=== PATIENT | female | born 1930 | race Asian ===

== ENCOUNTER 2018-01-08 18:05 | Inpatient (IN) | payer OTHER ==
[~2018-01-08] VITALS: Ht 152.4 cm; Wt 54.0 kg
[2018-01-08] VITALS (11 sets, daily range): BP systolic 160–197; BP diastolic 56–85
[~2018-01-08 18:05] MED LIST: ETOMIDATE 2MG/ML 10ML VIAL IV ONE; SUCCINYLCHOLINE CHLORIDE 200MG/10ML VIAL IV ONE
[2018-01-08] MEDS ORDERED: SODIUM CHLORIDE 0.9% 1,000 ML IV ONE (18:20)
[2018-01-08] MEDS ORDERED: PROPOFOL 10MG/ML 100ML 100 ML IV ONE (18:45)
[2018-01-08] MEDS ORDERED: ETOMIDATE 2MG/ML 10ML VIAL IV ONE (18:45)
[2018-01-08] MEDS ORDERED: SUCCINYLCHOLINE CHLORIDE 200MG/10ML VIAL IV ONE (18:45)
[2018-01-08 18:57] LABS: BASOPHILS % 0.7 % (0.0-2.0); EOSINOPHILS % 4.6 % (0.0-5.0); HEMATOCRIT. 37.6 % (36.0-48.0); HEMOGLOBIN. 12.9 g/dL (12.0-16.0); LYMPHOCYTES % 19.3 % (20.0-50.0); MEAN CORPUSCULAR HEMOGLOBIN 31.4 pg (28.0-32.0); MEAN CORPUSCULAR VOLUME 91.5 fL (81.0-99.0); MEAN PLATELET VOLUME 7.9 fl (7.4-10.4); MONOCYTES % 10.1 % (2.0-8.0); NEUTROPHILS % 65.3 % (40.0-76.0); PLATELET 192 x1000/uL (130-400); RED CELL DISTRIBUTION WIDTH 13.4 % (11.6-14.6)
[2018-01-08 19:04] LABS: CHLORIDE 105 mEq/L (98-107); INR 1.1; PROTHROMBIN TIME 11.3 sec (9.4-11.6)
[2018-01-08 19:08] LABS: ETHANOL BLOOD < 10 mg/dL
[2018-01-08] MEDS ORDERED: FUROSEMIDE 40MG/4ML VIAL IVP ONE (19:45)
[2018-01-08 19:47] LABS: CLARITY URINE CLEAR (CLEAR); COLOR URINE YELLOW (YELLOW); KETONES URINE NEGATIVE (NEGATIVE); LEUKOCYTE ESTERASE URINE NEGATIVE (NEGATIVE); NITRITE URINE NEGATIVE (NEGATIVE); OCCULT BLOOD URINE NEGATIVE (NEGATIVE); PH URINE 6.5 (4.5-8.0); PROTEIN URINE 1+ (NEGATIVE); SPECIFIC GRAVITY URINE 1.017 (1.005-1.030); UROBILINOGEN URINE 0.2 E.U./dL (0.2-1.0)
[2018-01-08 19:59] LABS: CREATINE KINASE 142 IU/L (26-192)
[2018-01-08 20:16] LABS: *AMPHETAMINES SCREEN URINE NEGATIVE (NEGATIVE); *BARBITURATES SCREEN URINE NEGATIVE (NEGATIVE)
[2018-01-08 20:17] LABS: *BENZODIAZEPINES SCREEN URINE NEGATIVE (NEGATIVE); *COCAINE SCREEN URINE NEGATIVE (NEGATIVE); CANNABINOID URINE SCREEN NEGATIVE (NEGATIVE); METHADONE URINE SCREEN NEGATIVE (NEGATIVE); OPIATES URINE SCREEN NEGATIVE (NEGATIVE); PHENCYCLIDINE URINE SCREEN NEGATIVE (NEGATIVE)
[2018-01-09] VITALS (47 sets, daily range): BP systolic 114–194; BP diastolic 37–91
[2018-01-09] MEDS ORDERED: ACETAMINOPHEN 325MG TABLET GT PRN
[2018-01-09] MEDS ORDERED: ONDANSETRON HCL 4MG/2ML VIAL IV PRN
[2018-01-09] MEDS ORDERED: LORAZEPAM 2MG/ML CPJ IV PRN
[2018-01-09] MEDS ORDERED: ATROPINE SULFATE 1MG/10ML SYR IV SCH (00:15)
[2018-01-09] MEDS ORDERED: ATROPINE SULFATE 1MG/10ML SYR IV PRN (00:30)
[2018-01-09 00:32] LABS: BG BASE EXCESS -0.9 mmol/L (-2.0-2.0); BG CARBOXYHEMOGLOBIN 0.3 % (0.5-1.5); BG DEOXYHEMOGLOBIN 0.5 % (0.0-5.0); BG FRACTION INSPIRED OXYGEN 100; BG HCO3 ACT 22.4 mmol/L (22.0-26.0); BG METHEMOGLOBIN 0.2 % (0.0-1.5); BG OXYGEN SATURATION 99.5 % (92.0-98.5); BG PCO2 33.4 mmHg (35.0-45.0); BG PEEP (cmH2O) 0 cmH2O; BG PH 7.445 (7.350-7.450); BG PO2 407.4 mmHg (75.0-100.0); BG SAMPLE SITE LEFT BRACHIAL; BG TIDAL VOLUME(mL) 500 mL; BG VENT MODE VENT - A/C; BG VENT RATE 12 set
[2018-01-09] MEDS: DEXT 5%/0.45% NACL 1000ML 1,000 ML IV SCH ×3 (00:53→23:49)
[2018-01-09] MEDS: HYDRALAZINE 20MG/ML VIAL IV PRN ×4 (00:55→22:25)
[2018-01-09] MEDS ORDERED: PIPERACILLIN/TAZ 3.375G PREMIX 50 ML IV SCH ×2 (01:00)
[2018-01-09] MEDS ORDERED: VANCOMYCIN 1 G PREMIX 200 ML IV SCH ×2 (02:00)
[2018-01-09] MEDS ORDERED: PROPOFOL 10MG/ML 100ML 100 ML IV PRN (02:00)
[2018-01-09 06:28] LABS: BASOPHILS % 0.5 % (0.0-2.0); EOSINOPHILS % 1.1 % (0.0-5.0); HEMATOCRIT. 40.2 % (36.0-48.0); HEMOGLOBIN. 13.6 g/dL (12.0-16.0); LYMPHOCYTES % 7.9 % (20.0-50.0); MEAN CORPUSCULAR HEMOGLOBIN 31.1 pg (28.0-32.0); MEAN PLATELET VOLUME 7.3 fl (7.4-10.4); MONOCYTES % 11.7 % (2.0-8.0); NEUTROPHILS % 78.8 % (40.0-76.0); PLATELET 145 x1000/uL (130-400); RED BLOOD CELL COUNT 4.37 mill/uL (4.2-5.4); RED CELL DISTRIBUTION WIDTH 13.1 % (11.6-14.6)
[2018-01-09 07:53] LABS: AMMONIA 37 uMol/L (<32)
[2018-01-09 07:55] LABS: PHOSPHORUS 3.5 mg/dL (2.5-4.9)
[2018-01-09 08:01] LABS: CREATINE KINASE MB FRACTION 7.5 ng/mL (0.5-3.6)
[2018-01-09 08:30] LABS: BG BASE EXCESS -1.5 mmol/L (-2.0-2.0); BG CARBOXYHEMOGLOBIN 0.2 % (0.5-1.5); BG DEOXYHEMOGLOBIN 0.7 % (0.0-5.0); BG FRACTION INSPIRED OXYGEN 50; BG METHEMOGLOBIN 0.3 % (0.0-1.5); BG OXYGEN SATURATION 99.3 % (92.0-98.5); BG OXYHEMOGLOBIN 98.8 % (94.0-97.0); BG PCO2 29.2 mmHg (35.0-45.0); BG PH 7.474 (7.350-7.450); BG PO2 225.8 mmHg (75.0-100.0); BG SAMPLE SITE RIGHT BRACHIAL; BG TIDAL VOLUME(mL) 500 mL; BG TOTAL HEMOGLOBIN 13.8 g/dL (12.0-18.0); BG VENT MODE VENT - A/C; BG VENT RATE 12 set
[2018-01-09] MEDS: KCL 20MEQ/100ML PREMIX 100 ML IV SCH ×2 (09:00→11:48)
[2018-01-09] MEDS ORDERED: ENOXAPARIN 40MG/0.4ML SYR SUBCUT SCH (09:00)
[2018-01-09] MEDS: PIPERACILLIN/TAZ 2.25G PREMIX 50 ML IV SCH ×3 (09:01→23:49)
[2018-01-09] MEDS: ENOXAPARIN 30MG/0.3ML SYR SUBCUT SCH (09:03)
[2018-01-09] MEDS ORDERED: MAGNESIUM 2 G PREMIX 50 ML IV ONE (10:00)
[2018-01-09] MEDS: FUROSEMIDE 40MG/4ML VIAL IVP SCH ×2 (10:15→17:45)
[2018-01-09] MEDS ORDERED: MAGNESIUM SULFATE 2 GM in DEXTROSE 5% WATER 50 ML IV NR (11:00)
[2018-01-09] MEDS ORDERED: ISOS60TA4 PO (11:08)
[2018-01-09] MEDS ORDERED: GABA-529 PO (11:08)
[2018-01-09] MEDS ORDERED: FURO20TA4 PO (11:08)
[2018-01-09] MEDS ORDERED: HYDR100T26 PO (11:08)
[2018-01-09] MEDS ORDERED: LOSA50TA20 PO (11:08)
[2018-01-09] MEDS ORDERED: ATOR-2 PO (11:08)
[2018-01-09] MEDS ORDERED: CARV25TA47 PO (11:08)
[2018-01-09] MEDS ORDERED: LEVO88TA7 PO (11:08)
[2018-01-09] MEDS ORDERED: OMEP20CA10 PO (11:08)
[2018-01-09] MEDS: LOSARTAN POTASSIUM 50 MG TABLET PO SCH (11:48)
[2018-01-09] MEDS: AMLODIPINE 5MG TABLET PO SCH (11:48)
[2018-01-09] MEDS: LEVOTHYROXINE SODIUM 88MCG TABLET PO SCH (15:16)
[2018-01-09 15:47] LABS: T4 FREE 1.76 ng/dL (0.76-1.46)
[2018-01-09 15:48] LABS: CREATINE KINASE MB FRACTION 12.7 ng/mL (0.5-3.6)
[2018-01-09 15:54] LABS: AMMONIA 38 uMol/L (<32)
[2018-01-09 16:07] LABS: FOLIC ACID (FOLATE) SERUM > 20.00 ng/mL (>5.38)
[2018-01-09 16:17] LABS: VITAMIN B12 SERUM 1312 pg/mL (211-911)
[2018-01-09] MEDS: IPRATROPIUM/ALBUTEROL 0.5-3(2.5)MG/3ML NEB HHN SCH ×2 (16:32→20:27)
[2018-01-09] MEDS: NITROGLYCERIN OINT 1GM/INCH UDPKT TD SCH ×2 (17:45→21:48)
[2018-01-10] VITALS (75 sets, daily range): BP systolic 59–202; BP diastolic 30–131
[2018-01-10] MEDS ORDERED: VANCOMYCIN 750 MG PREMIX 150 ML IV SCH
[2018-01-10] MEDS: IPRATROPIUM/ALBUTEROL 0.5-3(2.5)MG/3ML NEB HHN SCH ×6 (00:14→20:11)
[2018-01-10] MEDS: NITROGLYCERIN OINT 1GM/INCH UDPKT TD SCH ×3 (05:11→21:16)
[2018-01-10] MEDS: FUROSEMIDE 40MG/4ML VIAL IVP SCH ×2 (06:52→17:41)
[2018-01-10 06:54] LABS: HEMATOCRIT. 44.6 % (36.0-48.0); HEMOGLOBIN. 15.1 g/dL (12.0-16.0); MEAN CORPUSCULAR HEMOGLOBIN 30.8 pg (28.0-32.0); MEAN CORPUSCULAR VOLUME 90.7 fL (81.0-99.0); MEAN PLATELET VOLUME 7.4 fl (7.4-10.4); PLATELET 149 x1000/uL (130-400); RED BLOOD CELL COUNT 4.92 mill/uL (4.2-5.4); RED CELL DISTRIBUTION WIDTH 13.1 % (11.6-14.6)
[2018-01-10 07:34] LABS: CHLORIDE 95 mEq/L (98-107)
[2018-01-10 07:46] LABS: PHOSPHORUS 2.1 mg/dL (2.5-4.9)
[2018-01-10] MEDS ORDERED: POTASSIUM CHLORIDE 20MEQ/PACKET PO NR ×2 (08:15→12:41)
[2018-01-10] MEDS: ENOXAPARIN 30MG/0.3ML SYR SUBCUT SCH (09:04)
[2018-01-10] MEDS: PANTOPRAZOLE SODIUM 40 MG/VIAL IV SCH (09:04)
[2018-01-10] MEDS: PIPERACILLIN/TAZ 2.25G PREMIX 50 ML IV SCH ×2 (09:04→16:36)
[2018-01-10] MEDS: LOSARTAN POTASSIUM 50 MG TABLET PO SCH (09:04)
[2018-01-10] MEDS: AMLODIPINE 5MG TABLET PO SCH (09:05)
[2018-01-10] MEDS: LEVOTHYROXINE SODIUM 88MCG TABLET PO SCH (09:05)
[2018-01-10 09:20] LABS: BG BASE EXCESS 0.9 mmol/L (-2.0-2.0); BG CARBOXYHEMOGLOBIN 0.2 % (0.5-1.5); BG DEOXYHEMOGLOBIN 0.7 % (0.0-5.0); BG FRACTION INSPIRED OXYGEN 40; BG HCO3 ACT 20.9 mmol/L (22.0-26.0); BG METHEMOGLOBIN 0.3 % (0.0-1.5); BG OXYGEN SATURATION 99.3 % (92.0-98.5); BG OXYHEMOGLOBIN 98.8 % (94.0-97.0); BG PCO2 23.8 mmHg (35.0-45.0); BG PH 7.562 (7.350-7.450); BG SAMPLE SITE RIGHT RADIAL; BG TIDAL VOLUME(mL) 500 mL; BG TOTAL HEMOGLOBIN 16.1 g/dL (12.0-18.0); BG VENT MODE VENT - A/C; BG VENT RATE 12 set
[2018-01-10] MEDS ORDERED: POTASSIUM CHLORIDE 20MEQ TABLET SR PO NR (12:15)
[2018-01-10] MEDS: SPIRONOLACTONE 25MG TABLET PO SCH (13:16)
[2018-01-10 13:19] LABS: PLATELET ESTIMATE NORMAL
[2018-01-10] MEDS: DEXT 5%/0.45% NACL 1000ML 1,000 ML IV SCH (16:01)
[2018-01-10] MEDS ORDERED: NOREPINEPHRINE BITARTRATE 1MG/ML 4ML IV ONE (16:33)
[2018-01-10] MEDS ORDERED: VANCOMYCIN 1 G PREMIX 200 ML IV SCH (21:00)
[2018-01-10] MEDS ORDERED: ACETAMINOPHEN 650MG/20.3ML UDC GT PRN (22:15)
[2018-01-11] VITALS (87 sets, daily range): BP systolic 59–167; BP diastolic 32–73
[2018-01-11] MEDS: PIPERACILLIN/TAZ 2.25G PREMIX 50 ML IV SCH ×2 (00:05→08:09)
[2018-01-11] MEDS: IPRATROPIUM/ALBUTEROL 0.5-3(2.5)MG/3ML NEB HHN SCH ×6 (00:12→20:26)
[2018-01-11] MEDS: NOREPINEPHRINE 4 MG in DEXT 5% WATER 246 ML IV PRN (04:58)
[2018-01-11] MEDS: NITROGLYCERIN OINT 1GM/INCH UDPKT TD SCH ×3 (06:00→22:00)
[2018-01-11 06:45] LABS: HEMATOCRIT. 41.9 % (36.0-48.0); HEMOGLOBIN. 14.4 g/dL (12.0-16.0); MEAN CORPUSCULAR HEMOGLOBIN 31.1 pg (28.0-32.0); MEAN CORPUSCULAR VOLUME 90.8 fL (81.0-99.0); MEAN PLATELET VOLUME 8.3 fl (7.4-10.4); PLATELET 116 x1000/uL (130-400); RED BLOOD CELL COUNT 4.62 mill/uL (4.2-5.4); RED CELL DISTRIBUTION WIDTH 13.1 % (11.6-14.6)
[2018-01-11] MEDS: LEVOTHYROXINE SODIUM 88MCG TABLET PO SCH (06:51)
[2018-01-11] MEDS: FUROSEMIDE 40MG/4ML VIAL IVP SCH ×2 (06:51→18:45)
[2018-01-11] MEDS: AMLODIPINE 5MG TABLET PO SCH (09:00)
[2018-01-11] MEDS ORDERED: POTASSIUM CHLORIDE INJ 40 MEQ in DEXT 5% WATER 250 ML IV ONE (09:15)
[2018-01-11] MEDS ORDERED: IPRATROPIUM/ALBUTEROL 0.5-3(2.5)MG/3ML NEB HHN PRN (09:15)
[2018-01-11 09:42] LABS: BG BASE EXCESS -1.1 mmol/L (-2.0-2.0); BG CARBOXYHEMOGLOBIN 0.4 % (0.5-1.5); BG DEOXYHEMOGLOBIN 0.9 % (0.0-5.0); BG FRACTION INSPIRED OXYGEN 40; BG HCO3 ACT 20.4 mmol/L (22.0-26.0); BG METHEMOGLOBIN 0.2 % (0.0-1.5); BG OXYGEN SATURATION 99.1 % (92.0-98.5); BG OXYHEMOGLOBIN 98.5 % (94.0-97.0); BG PCO2 26.6 mmHg (35.0-45.0); BG PH 7.502 (7.350-7.450); BG PO2 167.1 mmHg (75.0-100.0); BG SAMPLE SITE RIGHT BRACHIAL; BG TIDAL VOLUME(mL) 500 mL; BG VENT MODE VENT - A/C; BG VENT RATE 12 set
[2018-01-11 10:08] LABS: PLATELET ESTIMATE DECREASED
[2018-01-11] MEDS: LOSARTAN POTASSIUM 50 MG TABLET PO SCH (10:29)
[2018-01-11] MEDS: ENOXAPARIN 30MG/0.3ML SYR SUBCUT SCH (10:31)
[2018-01-11] MEDS: KCL 20MEQ/100ML PREMIX 100 ML IV SCH ×2 (10:31→16:46)
[2018-01-11] MEDS: PANTOPRAZOLE SODIUM 40 MG/VIAL IV SCH (10:40)
[2018-01-11] MEDS: SPIRONOLACTONE 25MG TABLET PO SCH (10:40)
[2018-01-11] MEDS ORDERED: LORAZEPAM 2MG/ML CPJ IV PRN (11:00)
[2018-01-11] MEDS ORDERED: MORPHINE SULFATE 4 MG/ML CPJ (NOT FOR IM USE) IV PRN (11:00)
[2018-01-11] MEDS ORDERED: CEFEPIME 1,000 MG in DEXTROSE 5% WATER 50 ML IV SCH (13:00)
[2018-01-11] MEDS ORDERED: MANNITOL 20% (20GM/100ML) BAG 500ML PREMIX IV ONE (17:45)
[2018-01-11] MEDS ORDERED: DEXAMETHASONE 10 MG/ML VIAL IV NR (17:45)
[2018-01-11] MEDS ORDERED: MANNITOL 20% 125 ML IV NR (18:30)
[2018-01-12] VITALS (60 sets, daily range): BP systolic 82–166; BP diastolic 36–84
[2018-01-12] MEDS: DEXAMETHASONE 4MG/ML 1ML VIAL IV SCH ×5 (00:55→18:30)
[2018-01-12] MEDS: IPRATROPIUM/ALBUTEROL 0.5-3(2.5)MG/3ML NEB HHN SCH ×5 (02:33→20:22)
[2018-01-12] MEDS: NITROGLYCERIN OINT 1GM/INCH UDPKT TD SCH (06:00)
[2018-01-12] MEDS: LEVOTHYROXINE SODIUM 88MCG TABLET PO SCH (06:10)
[2018-01-12] MEDS: FUROSEMIDE 40MG/4ML VIAL IVP SCH (06:18)
[2018-01-12] MEDS: DEXT 5%/0.45% NACL 1000ML 1,000 ML IV SCH ×3 (07:21→14:02)
[2018-01-12] MEDS ORDERED: MANNITOL 20% (20GM/100ML) BAG 500ML PREMIX IV SCH (07:45)
[2018-01-12 07:49] LABS: BG BASE EXCESS -5.5 mmol/L (-2.0-2.0); BG CARBOXYHEMOGLOBIN 0.2 % (0.5-1.5); BG DEOXYHEMOGLOBIN 0.9 % (0.0-5.0); BG HCO3 ACT 15.8 mmol/L (22.0-26.0); BG METHEMOGLOBIN 0.2 % (0.0-1.5); BG OXYGEN SATURATION 99.1 % (92.0-98.5); BG OXYHEMOGLOBIN 98.7 % (94.0-97.0); BG PCO2 22.1 mmHg (35.0-45.0); BG PH 7.471 (7.350-7.450); BG PO2 170.8 mmHg (75.0-100.0); BG SAMPLE SITE RIGHT BRACHIAL; BG TIDAL VOLUME(mL) 500 mL; BG TOTAL HEMOGLOBIN 14.9 g/dL (12.0-18.0); BG VENT MODE VENT - A/C; BG VENT RATE 12 set
[2018-01-12] MEDS ORDERED: MANNITOL 20% 125 ML IV SCH (08:00)
[2018-01-12] MEDS: PANTOPRAZOLE SODIUM 40 MG/VIAL IV SCH (09:00)
[2018-01-12] MEDS: NOREPINEPHRINE 4 MG in DEXT 5% WATER 246 ML IV PRN (09:59)
[2018-01-12] MEDS ORDERED: LEVOFLOXACIN 500MG PREMIX 100 ML IV SCH (10:15)
[2018-01-12 10:24] LABS: BG BASE EXCESS -5.3 mmol/L (-2.0-2.0); BG CARBOXYHEMOGLOBIN 0.3 % (0.5-1.5); BG DEOXYHEMOGLOBIN 0.4 % (0.0-5.0); BG HCO3 ACT 16.7 mmol/L (22.0-26.0); BG METHEMOGLOBIN 0.3 % (0.0-1.5); BG OXYGEN SATURATION 99.6 % (92.0-98.5); BG PCO2 24.8 mmHg (35.0-45.0); BG PH 7.447 (7.350-7.450); BG PO2 585.7 mmHg (75.0-100.0); BG SAMPLE SITE RIGHT BRACHIAL; BG TIDAL VOLUME(mL) 500 mL; BG TOTAL HEMOGLOBIN 14.8 g/dL (12.0-18.0); BG VENT MODE VENT - A/C; BG VENT RATE 12 set
[2018-01-12 10:34] LABS: BG BASE EXCESS -7.6 mmol/L (-2.0-2.0); BG CARBOXYHEMOGLOBIN 0.3 % (0.5-1.5); BG DEOXYHEMOGLOBIN 0.4 % (0.0-5.0); BG HCO3 ACT 18.6 mmol/L (22.0-26.0); BG METHEMOGLOBIN 0.1 % (0.0-1.5); BG OXYGEN SATURATION 99.6 % (92.0-98.5); BG OXYHEMOGLOBIN 99.2 % (94.0-97.0); BG PH 7.285 (7.350-7.450); BG PO2 510.5 mmHg (75.0-100.0); BG SAMPLE SITE RIGHT RADIAL; BG TOTAL HEMOGLOBIN 14.6 g/dL (12.0-18.0); BG VENT MODE NASAL CANNULA
[2018-01-12] MEDS ORDERED: LEVOFLOXACIN 750MG PREMIX 150 ML IV SCH (11:00)
[2018-01-12 11:52] LABS: HEMATOCRIT. 42.8 % (36.0-48.0); HEMOGLOBIN. 14.3 g/dL (12.0-16.0); MEAN CORPUSCULAR VOLUME 92.6 fL (81.0-99.0); PLATELET 107 x1000/uL (130-400); RED BLOOD CELL COUNT 4.63 mill/uL (4.2-5.4); RED CELL DISTRIBUTION WIDTH 13.3 % (11.6-14.6)
[2018-01-12 12:50] LABS: BG BASE EXCESS -6.1 mmol/L (-2.0-2.0); BG CARBOXYHEMOGLOBIN 0.2 % (0.5-1.5); BG DEOXYHEMOGLOBIN 0.3 % (0.0-5.0); BG FRACTION INSPIRED OXYGEN 100; BG HCO3 ACT 16.2 mmol/L (22.0-26.0); BG METHEMOGLOBIN 0.3 % (0.0-1.5); BG OXYGEN SATURATION 99.7 % (92.0-98.5); BG OXYHEMOGLOBIN 99.2 % (94.0-97.0); BG PCO2 24.9 mmHg (35.0-45.0); BG PH 7.431 (7.350-7.450); BG PO2 564.8 mmHg (75.0-100.0); BG SAMPLE SITE RIGHT BRACHIAL; BG TIDAL VOLUME(mL) 500 mL; BG TOTAL HEMOGLOBIN 14.8 g/dL (12.0-18.0); BG VENT MODE VENT - A/C; BG VENT RATE 12 set
[2018-01-12 13:03] LABS: BG BASE EXCESS -7.7 mmol/L (-2.0-2.0); BG CARBOXYHEMOGLOBIN 0.3 % (0.5-1.5); BG DEOXYHEMOGLOBIN 0.2 % (0.0-5.0); BG HCO3 ACT 19.1 mmol/L (22.0-26.0); BG METHEMOGLOBIN 0.5 % (0.0-1.5); BG OXYGEN SATURATION 99.8 % (92.0-98.5); BG PCO2 43.7 mmHg (35.0-45.0); BG PH 7.259 (7.350-7.450); BG PO2 511.7 mmHg (75.0-100.0); BG SAMPLE SITE RIGHT BRACHIAL; BG VENT MODE NASAL CANNULA
[2018-01-12 13:25] LABS: PLATELET ESTIMATE SLIGHTLY DECREASED
[2018-01-12] MEDS: METRONIDAZOLE 500 MG PREMIX 100 ML IV SCH ×2 (14:06→22:59)
[2018-01-13] VITALS (75 sets, daily range): BP systolic 79–135; BP diastolic 35–68
[2018-01-13] MEDS: DEXAMETHASONE 4MG/ML 1ML VIAL IV SCH ×4 (00:15→18:00)
[2018-01-13] MEDS: IPRATROPIUM/ALBUTEROL 0.5-3(2.5)MG/3ML NEB HHN SCH ×5 (00:19→15:47)
[2018-01-13] MEDS ORDERED: LEVOTHYROXINE SODIUM 100 MCG/ VIAL IV SCH (06:00)
[2018-01-13] MEDS: METRONIDAZOLE 500 MG PREMIX 100 ML IV SCH ×2 (06:20→14:32)
[2018-01-13] MEDS: PANTOPRAZOLE SODIUM 40 MG/VIAL IV SCH (09:19)
[2018-01-13] MEDS: NOREPINEPHRINE 4 MG in DEXT 5% WATER 246 ML IV PRN (11:57)
== END 2018-01-13 23:40 | disposition expired | DRG 870 ==
LOC: ER 18:11 → EDBEDREQTM 20:59 → CVICU 20:59 → EDBEDREQ 20:59 → OBSVTOIN 20:59 → ENRESERV 21:18 → MICUNO 01-11 19:30
PROVIDERS: ADMIT Internal Medicine Nephrology; ATTEND Internal Medicine Nephrology
PROC: 5A1955Z Respiratory Ventilation, Greater than 96 Consecutive Hours (ICD-10-PCS; principal; 2018-01-08)
PROC: 0BH17EZ Insertion of Endotracheal Airway into Trachea, Via Natural or Artificial Opening (ICD-10-PCS; 2018-01-08)
DX: A41.9 Sepsis, unspecified organism (principal); J96.00 Acute respiratory failure, unspecified whether with hypoxia or hypercapnia; G92 Toxic encephalopathy; E43 Unspecified severe protein-calorie malnutrition; J69.0 Pneumonitis due to inhalation of food and vomit; I60.9 Nontraumatic subarachnoid hemorrhage, unspecified; G93.6 Cerebral edema; I50.23 Acute on chronic systolic (congestive) heart failure; R65.21 Severe sepsis with septic shock; G93.5 Compression of brain; I62.00 Nontraumatic subdural hemorrhage, unspecified; I61.5 Nontraumatic intracerebral hemorrhage, intraventricular; E87.1 Hypo-osmolality and hyponatremia; I42.9 Cardiomyopathy, unspecified; J44.0 Chronic obstructive pulmonary disease with (acute) lower respiratory infection; N39.0 Urinary tract infection, site not specified; E87.6 Hypokalemia; E03.9 Hypothyroidism, unspecified; I11.0 Hypertensive heart disease with heart failure; I25.10 Atherosclerotic heart disease of native coronary artery without angina pectoris; B96.20 Unspecified Escherichia coli [E. coli] as the cause of diseases classified elsewhere; I49.3 Ventricular premature depolarization; Z51.5 Encounter for palliative care; Z86.73 Personal history of transient ischemic attack (TIA), and cerebral infarction without residual deficits; Z68.23 Body mass index [BMI] 23.0-23.9, adult
CPT/HCPCS: 31500; 36415; 36600; 51702; 70450; 70551; 71045; 78615; 80048; 80053; 80305; 81003; 82140; 82375; 82550; 82553; 82607; 82746; 82805; 83036; 83605; 83690; 83735; 83880; 84100; 84439; 84443; 84478; 84481; 84484; 85025; 85610; 86850; 86900; 87040; 87070; 87077; 87086; 87186; 93005; 93306; 93970; 94002; 94003; 94640; 96361; 96374; 96375; 99291; A6261; A9512; C9113; G0482; J0330; J0360; J0692; J1100; J1650; J1940; J1956; J2543; J2704; J3370; J3475; J3480; J3490; J7030; J7040; J7060; J7620